=== PATIENT | male | born 1995 | race Caucasian/White ===

== ENCOUNTER 2018-04-04 13:56 | Emergency (ER) | payer MEDICAID ==
[2018-04-04] MEDS ORDERED: normal saline 1000ML IV soln IVB ONE (14:25)
[2018-04-04 18:19] VITALS: BP 96/68
== END 2018-04-04 18:21 | disposition home or self-care (01) ==
LOC: ER 13:56
DX: T40.1X1A Poisoning by heroin, accidental (unintentional), initial encounter (principal); R00.0 Tachycardia, unspecified; Z56.0 Unemployment, unspecified; Y92.89 Other specified places as the place of occurrence of the external cause
CPT/HCPCS: 93005; 99284; J7030

== ENCOUNTER 2018-06-08 13:40 | Emergency (ER) | payer MEDICAID ==
[~2018-06-08] VITALS: Ht 193 cm; Wt 78.0 kg
[2018-06-08 14:02] VITALS: BP 126/71
[2018-06-08] MEDS ORDERED: ONDA4TAB9 SL (14:08)
[2018-06-08] MEDS ORDERED: HYDR-3686 PO (14:08)
[2018-06-08] MEDS ORDERED: ondansetron 4mg rapidly disintigrating tab PO ONE (14:10)
== END 2018-06-08 14:15 | disposition home or self-care (01) ==
LOC: ER 13:41
DX: R11.2 Nausea with vomiting, unspecified (principal); R19.7 Diarrhea, unspecified; F15.90 Other stimulant use, unspecified, uncomplicated; F11.90 Opioid use, unspecified, uncomplicated; Z88.0 Allergy status to penicillin; Z79.899 Other long term (current) drug therapy; Z59.0 Homelessness; Z56.0 Unemployment, unspecified; Z60.2 Problems related to living alone
CPT/HCPCS: 99283

== ENCOUNTER 2018-07-01 11:09 | Emergency (ER) | payer MEDICAID ==
[~2018-07-01] VITALS: Ht 182.9 cm; Wt 75.0 kg
[2018-07-01] MEDS ORDERED: iohexol 300mg/ml 100ml inj. ONE (11:51)
[2018-07-01 12:35] LABS: BASOPHILS % (AUTO) 0.2 % (0-1); EOSINOPHILS # (AUTO) 0.1 X10'3 (0-0.9); EOSINOPHILS % (AUTO) 0.5 % (0-6); HEMATOCRIT 44.7 % (42.0-52.0); HEMOGLOBIN 14.7 g/dl (14.0-17.9); LYMPHOCYTES # (AUTO) 1.7 X10'3 (1.1-4.8); LYMPHOCYTES % (AUTO) 16.1 % (21-51); MEAN CORPUSCULAR HEMOGLOBIN 28.7 PG (27.0-31.0); MEAN CORPUSCULAR HGB CONC 32.8 % (33.0-36.5); MEAN CORPUSCULAR VOLUME 87.5 FL (78-98); MEAN PLATELET VOLUME 8.4 FL (7.4-10.4); MONOCYTES # (AUTO) 0.8 X10'3 (0-0.9); MONOCYTES % (AUTO) 7.5 % (2-12); NEUTROPHILS # (AUTO) 7.9 X10'3 (1.8-7.7); NEUTROPHILS % (AUTO) 75.7 % (42-75); PLATELET COUNT 242 X10'3 (140-440); RED BLOOD COUNT 5.11 X10'6 (4.70-6.10); RED CELL DISTRIBUTION WIDTH 12.8 % (11.5-14.5); WHITE BLOOD COUNT 10.5 X10'3 (4.5-11.0)
[2018-07-01 12:54] LABS: ALBUMIN 3.8 G/DL (3.4-5.0); ANION GAP 8 (8-16); BLOOD UREA NITROGEN 13 MG/DL (7-18); BUN/CREATININE RATIO 15.5 (5.4-32.0); CALCIUM 9.5 MG/DL (8.5-10.1); CHLORIDE 106 MMOL/L (99-107); CREATININE 0.84 MG/DL (0.60-1.10); GLUCOSE 106 MG/DL (70-104); POTASSIUM 4.2 MMOL/L (3.5-5.1); SODIUM 142 MMOL/L (135-145); TOTAL CARBON DIOXIDE 28.2 MMOL/L (24-32); eGFR > 90 ML/MIN
[2018-07-01] MEDS ORDERED: DICY10CA88 PO (13:47)
[2018-07-01] MEDS ORDERED: IBUP-1986 PO (14:53)
[2018-07-01 15:18] VITALS: BP 128/66
== END 2018-07-01 15:10 | disposition home or self-care (01) ==
LOC: ER 11:10
DX: S92.322A Displaced fracture of second metatarsal bone, left foot, initial encounter for closed fracture (principal); S90.32XA Contusion of left foot, initial encounter; S20.219A Contusion of unspecified front wall of thorax, initial encounter; F19.10 Other psychoactive substance abuse, uncomplicated; F15.90 Other stimulant use, unspecified, uncomplicated; F11.90 Opioid use, unspecified, uncomplicated; Z59.0 Homelessness; Z56.0 Unemployment, unspecified; Z88.0 Allergy status to penicillin; V19.88XA Pedal cyclist (driver) (passenger) injured in other specified transport accidents, initial encounter; Y93.55 Activity, bike riding; Y92.413 State road as the place of occurrence of the external cause; Y99.9 Unspecified external cause status
CPT/HCPCS: 29515; 36415; 71045; 71260; 72040; 73630; 74177; 80048; 84484; 85025; 93005; 99285; J7030; Q9967; 29540